=== PATIENT | male | born 1960 | race Caucasian/White ===

== ENCOUNTER 2017-04-23 09:29 | Day surgery (SDC) | payer MEDICARE, BC ==
[~2017-04-23 09:29] MED LIST: Cefuroxime 10 MG/ML SYRINGE EYERT SCH; Lidocaine 1% PF 2 ML SDV INJECT SCH; Ofloxacin 0.3% Ophth Soln 5 ML Bottle EYERT SCH; Pilocarpine 4% Ophth Soln 15 ML Bot EYERT SCH
[2017-04-23] MEDS: Polymyxin B/Trimethoprim 10 ML Bottle EYERT SCH ×2 (10:30→11:10)
[2017-04-23] MEDS: Brimonidine 0.2% Ophth Soln 5 ML Bottle EYERT SCH ×3 (10:36→12:02)
[2017-04-23] MEDS: Phenylephrine 2.5% Ophth Soln 2 ML Bot EYERT SCH ×5 (10:40→11:41)
--- NOTE | 2017-04-23 10:44 | PCM.PREANE ---
Preanesthetic Assessment - Procedure Proposed Procedure: Left eye cataract extraction with IOL - Anesthesia/Transfusion/Family Hx Anesthesia History: Prior Anesthesia Without Reaction Type of Anesthesia Reaction: Excessive Somnolence Family History of Anesthesia Reaction: No Transfusion History: No Prior Transfusion(s) Intubation History: Unknown - Review of Systems General: No Symptoms Pulmonary: Shortness of Breath, Cough, Other (COPD) Cardiovascular: No Symptoms Gastrointestinal: Other (GERD) Neurological: Numbness (to hands occasionally "from chemo") Other: Reports: None, Depression, Anxiety - Physical Assessment NPO Status Date: 04/23/17 NPO Status Time: 06:00 O2 Sat by Pulse Oximetry: 90 Respiratory Rate: 16 Vital Signs: Last Vital Signs Temp 37.0 C 04/23/17 10:19 Pulse 104 H 04/23/17 10:19 Resp 16 04/23/17 10:19 BP 110/64 04/23/17 10:19 Pulse Ox 90 L 04/23/17 10:19 Height: 1.73 m Weight: 97.976 kg ASA Class: 3 Mental Status: Alert & Oriented x3 Dentition: Reports: Missing Tooth/Teeth Thyro-Mental Finger Breadths: 3 Mouth Opening Finger Breadths: 3 ROM/Head Extension: Full Lungs: Clear to auscultation, Normal respiratory effort Cardiovascular: Regular Rate, Regular Rhythm - Allergies Allergies/Adverse Reactions: Allergies Allergy/AdvReac Type Severity Reaction Status Date / Time erythromycin base Allergy Cannot Verified 04/22/17 15:08 [From Erythrocin] Remember hydromorphone [From Dilaudid] Allergy Cannot Verified 04/22/17 15:08 Remember metoclopramide [From Reglan] Allergy Cannot Verified 04/22/17 15:08 Remember Penicillins Allergy Cannot Verified 04/22/17 15:08 Remember Sulfa (Sulfonamide Allergy Cannot Verified 04/22/17 15:08 Antibiotics) Remember metals Allergy Cannot Uncoded 04/22/17 15:08 Remember - Blood Blood Available: No Product(s) Available: None - Anesthesia Plan Pre-Op Medication Ordered: None - Acknowledgements Anesthesia Type Planned: MAC Pt an Appropriate Candidate for the Planned Anesthesia: Yes Alternatives and Risks of Anesthesia Discussed w Pt/Guardian: Yes Pt/Guardian Understands and Agrees with Anesthesia Plan: Yes PreAnesthesia Questionnaire - CURRENT (IN HOUSE) MEDS Current Meds: Current Medications Brimonidine Tartrate (Alphagan 0.2% Ophth Soln) 0 ml EYERT ASDIRECTED REYNA Stop: 04/23/17 18:00 Last Admin: 04/23/17 10:36 Dose: 1 drop Cefuroxime Sodium (Zinacef) 0 mg EYERT ASDIRECTED REYNA Stop: 04/23/17 18:00 Lidocaine HCl (Xylocaine-Mpf 1%) 10 ml INJECT ASDIRECTED REYNA Stop: 04/23/17 18:00 Ofloxacin (Ocuflox 0.3% Ophth Soln) 0 ml EYERT ASDIRECTED REYNA Phenylephrine HCl (Rashad-Synephrine 2.5% Ophth Soln) 0 ml EYERT ASDIRECTED REYNA Stop: 04/23/17 18:00 Pilocarpine HCl (Pilocar 4% Ophth Soln) 0 ml EYERT ASDIRECTED REYNA Stop: 04/23/17 18:00 Tetracaine HCl (Tetracaine 0.5% Steri-Unit Shelley) 0 ml EYERT ASDIRECTED REYNA Stop: 04/23/17 18:00 Tropicamide (Mydriacyl 1% Ophth Soln) 0 ml EYERT ASDIRECTED REYNA Stop: 04/23/17 18:00 Discontinued Medications Polymyxin/Trimethoprim Sulfate (Polytrim Ophth Soln) 0 ml EYERT ASDIRECTED REYNA Stop: 04/23/17 18:00 Last Admin: 04/23/17 10:30 Dose: 1 drop
[2017-04-23] MEDS: Tetracaine HCl/PF 0.5% 4 ML Bottle EYERT SCH ×2 (11:33→11:46)
[2017-04-23 12:17] VITALS: BP 119/71
== END 2017-04-23 12:13 | disposition home or self-care (01) ==
LOC: JD.SDS 09:29
PROVIDERS: ATTEND Ophthalmology
PROC: 08RJ3JZ Replacement of Right Lens with Synthetic Substitute, Percutaneous Approach (ICD-10-PCS; principal; 2017-04-23)
DX: H25.811 Combined forms of age-related cataract, right eye (principal); D31.31 Benign neoplasm of right choroid; H35.373 Puckering of macula, bilateral; H16.223 Keratoconjunctivitis sicca, not specified as Sjogren's, bilateral; H16.103 Unspecified superficial keratitis, bilateral; M19.90 Unspecified osteoarthritis, unspecified site; J44.9 Chronic obstructive pulmonary disease, unspecified; F17.200 Nicotine dependence, unspecified, uncomplicated; Z85.830 Personal history of malignant neoplasm of bone; Z85.118 Personal history of other malignant neoplasm of bronchus and lung; Z85.828 Personal history of other malignant neoplasm of skin; Z85.89 Personal history of malignant neoplasm of other organs and systems; Z98.890 Other specified postprocedural states; Z88.0 Allergy status to penicillin; Z88.1 Allergy status to other antibiotic agents; Z88.2 Allergy status to sulfonamides; Z88.5 Allergy status to narcotic agent; Z91.048 Other nonmedicinal substance allergy status; Z79.899 Other long term (current) drug therapy
CPT/HCPCS: 66982; C1780; J0697; A9270-GY

== ENCOUNTER 2017-06-25 08:14 | Day surgery (SDC) | payer MEDICARE, BC ==
[~2017-06-25 08:14] MED LIST changes: +Brimonidine 0.2% Ophth Soln 5 ML Bottle EYERT SCH; +Phenylephrine 2.5% Ophth Soln 2 ML Bot EYERT SCH; +Polymyxin B/Trimethoprim 10 ML Bottle EYERT SCH; +Tetracaine HCl/PF 0.5% 4 ML Bottle EYERT SCH
[2017-06-25] MEDS: Ofloxacin 0.3% Ophth Soln 5 ML Bottle EYERT SCH ×3 (08:26→10:40)
--- NOTE | 2017-06-25 08:29 | PCM.PREANE ---
Preanesthetic Assessment - Anesthesia/Transfusion/Family Hx Anesthesia History: Prior Anesthesia Without Reaction Family History of Anesthesia Reaction: No Transfusion History: No Prior Transfusion(s) Intubation History: Unknown - Review of Systems General: No Symptoms Pulmonary: Shortness of Breath (pt states comes and goes) Cardiovascular: No Symptoms Gastrointestinal: No Symptoms, Nausea, Vomiting (pt states comes and goes, takes zofran) Neurological: No Symptoms Other: Reports: None - Physical Assessment NPO Status Date: 06/24/17 NPO Status Time: 18:00 Pulse: 99 O2 Sat by Pulse Oximetry: 96 Respiratory Rate: 18 Blood Pressure: 112/71 Temperature: 97.7 C Height: 1.73 m Weight: 97.976 kg ASA Class: 3 Mental Status: Alert & Oriented x3 Airway Class: Mallampati = 1 Dentition: Reports: Normal Dentition, Implants Thyro-Mental Finger Breadths: 3 Mouth Opening Finger Breadths: 3 ROM/Head Extension: Full Lungs: Clear to Auscultation, Decreased Breath Sounds (decreased LLL) Cardiovascular: Regular Rate, Regular Rhythm - Allergies Allergies/Adverse Reactions: Allergies Allergy/AdvReac Type Severity Reaction Status Date / Time erythromycin base Allergy Cannot Verified 04/22/17 15:08 [From Erythrocin] Remember hydromorphone [From Dilaudid] Allergy Cannot Verified 04/22/17 15:08 Remember metoclopramide [From Reglan] Allergy Cannot Verified 04/22/17 15:08 Remember Penicillins Allergy Cannot Verified 04/22/17 15:08 Remember Sulfa (Sulfonamide Allergy Cannot Verified 04/22/17 15:08 Antibiotics) Remember metals Allergy Cannot Uncoded 04/22/17 15:08 Remember - Acknowledgements Anesthesia Type Planned: MAC Pt an Appropriate Candidate for the Planned Anesthesia: Yes Alternatives and Risks of Anesthesia Discussed w Pt/Guardian: Yes Pt/Guardian Understands and Agrees with Anesthesia Plan: Yes PreAnesthesia Questionnaire HEENT History: Reports: Cataract Cardiovascular History: Reports: None Respiratory History: Reports: COPD, SOB (stage 4 lung CA, states SOB comes and goes) Gastrointestinal History: Reports: GERD Genitourinary History: Reports: None, Other (See Below) (hx transeurtheal resection) Musculoskeletal History: Reports: Arthritis Neurological History: Reports: None Psychiatric History: Reports: None Endocrine/Metabolic History: Reports: Other (See Below) (adrenal CA) Hematologic History: Reports: None Immunologic History: Reports: None Oncologic (Cancer) History: Reports: Bone, Lung Dermatologic History: Reports: None - Infectious Disease History Infectious Disease History: Reports: None - Past Surgical History Head Surgeries/Procedures: Reports: None HEENT Surgical History: Reports: Cataract Surgery Cardiovascular Surgical History: Reports: None Respiratory Surgical History: Reports: None GI Surgical History: Reports: Cholecystectomy, Colonoscopy, Hernia, Inguinal Female Surgical History: Reports: None Male Surgical History: Reports: TURBT-Transurethral Resection of Bladder Tumor Endocrine Surgical History: Reports: None Neurological Surgical History: Reports: None Musculoskeletal Surgical History: Reports: None Oncologic Surgical History: Reports: None Dermatological Surgical History: Reports: None - SUBSTANCE USE Smoking Status *Q: Former Smoker - HOME MEDS Home Medications: Home Meds Acetaminophen/HYDROcodone [[place] 325-5 MG] 1 tab PO Q4H PRN 06/24/17 [History] Amylase/Lipase/Protease [Creon DR 24,000 Units] 1 cap PO TIDMEALS 06/24/17 [ History] Budesonide/Formoterol [Symbicort 160-4.5 MCG] 2 puff INH BID 06/24/17 [History] Ciclopirox/Ure/Camph/Menth/Euc [Ciclopirox 8% Treatment Kit] 1 applic TP ASDIRECTED PRN 06/24/17 [History] Diphenoxylate HCl/Atropine [Diphenoxylate-Atrop 2.5-0.025] 1 tab PO ASDIRECTED PRN 06/24/17 [History] Gabapentin [Neurontin] 300 mg PO ASDIRECTED 06/24/17 [History] Gabapentin [Neurontin] 900 mg PO ASDIRECTED 06/24/17 [History] Methylphenidate HCl [Methylphenidate ER] 10 mg PO BID 06/24/17 [History] Nitroglycerin 0.4 mg SL ASDIRECTED PRN 06/24/17 [History] Ondansetron HCl [Zofran] 8 mg PO Q6H PRN 06/24/17 [History] Ondansetron [Zofran Odt] 8 mg PO Q6H PRN 06/24/17 [History] Pantoprazole Sodium [Protonix] 40 mg PO DAILY 06/24/17 [History] Promethazine HCl/Codeine [Prometh-Codein 6.25-10 mg/5 ml] 5 ml PO Q6H PRN [History] Promethazine [Phenergan] 12.5 mg PO Q6H PRN 06/24/17 [History] Sertraline HCl [Zoloft] 100 mg PO DAILY 06/24/17 [History] Thiamine [Vitamin B-1] 100 mg PO DAILY 06/24/17 [History] Tiotropium [place] [Spiriva Respimat] 2 puff IH DAILY 06/24/17 [History] Vitamin B Complex [B Complex] 1 tab PO DAILY 06/24/17 [History] atorvaSTATin [Lipitor] 20 mg PO BEDTIME 06/24/17 [History] - CURRENT (IN HOUSE) MEDS Current Meds: Current Medications Brimonidine Tartrate (Alphagan 0.2% Ophth Soln) 0 ml EYERT ASDIRECTED REYNA Stop: 06/25/17 18:00 Cefuroxime Sodium (Zinacef) 0 mg EYERT ASDIRECTED REYNA Stop: 06/25/17 18:00 Lidocaine HCl (Xylocaine-Mpf 1%) 10 ml INJECT ASDIRECTED REYNA Stop: 06/25/17 18:00 Ofloxacin (Ocuflox 0.3% Ophth Soln) 0 ml EYERT ASDIRECTED REYNA Stop: 06/25/17 18:00 Phenylephrine HCl (Rashad-Synephrine 2.5% Ophth Soln) 0 ml EYERT ASDIRECTED REYNA Stop: 06/25/17 18:00 Pilocarpine HCl (Pilocar 4% Ophth Soln) 0 ml EYERT ASDIRECTED REYNA Stop: 06/25/17 18:00 Tetracaine HCl (Tetracaine 0.5% Steri-Unit Shelley) 0 ml EYERT ASDIRECTED REYNA Stop: 06/25/17 18:00 Tropicamide (Mydriacyl 1% Ophth Soln) 0 ml EYERT ASDIRECTED REYNA Stop: 06/25/17 18:00 Discontinued Medications Brimonidine Tartrate (Alphagan 0.2% Ophth Soln) 0 ml EYERT ASDIRECTED REYNA Stop: 05/19/17 16:00 Brimonidine Tartrate (Alphagan 0.2% Ophth Soln) 0 ml EYERT ASDIRECTED REYNA Stop: 06/23/17 18:00 Cefuroxime Sodium (Zinacef) 0 mg EYERT ASDIRECTED REYNA Stop: 05/19/17 18:00 Cefuroxime Sodium (Zinacef) 0 mg EYERT ASDIRECTED REYNA Stop: 06/23/17 16:00 Lidocaine HCl (Xylocaine-Mpf 1%) 10 ml INJECT ASDIRECTED REYNA Stop: 05/19/17 18:00 Lidocaine HCl (Xylocaine-Mpf 1%) 10 ml INJECT ASDIRECTED REYNA Stop: 06/23/17 16:00 Ofloxacin (Ocuflox 0.3% Ophth Soln) 0 ml EYERT ASDIRECTED REYNA Stop: 05/19/17 16:00 Ofloxacin (Ocuflox 0.3% Ophth Soln) 0 ml EYERT ASDIRECTED REYNA Stop: 06/23/17 16:00 Phenylephrine HCl (Rashad-Synephrine 2.5% Ophth Soln) 0 ml EYERT ASDIRECTED REYNA Stop: 05/19/17 16:00 Phenylephrine HCl (Rashad-Synephrine 2.5% Ophth Soln) 0 ml EYERT ASDIRECTED REYNA Stop: 06/23/17 16:00 Pilocarpine HCl (Pilocar 4% Ophth Soln) 0 ml EYERT ASDIRECTED REYNA Stop: 05/19/17 16:00 Piloc[place] HCl (Pilocar 4% Ophth Soln) 0 ml EYERT ASDIRECTED REYNA Stop: 06/23/17 16:00 Tetracaine HCl (Tetracaine 0.5% Steri-Unit Shelley) 0 ml EYERT ASDIRECTED REYNA Stop: 05/19/17 16:00 Tetracaine HCl (Tetracaine 0.5% Steri-Unit [place]) 0 ml EYERT ASDIRECTED REYNA Stop: 06/23/17 16:00 Tropicamide (Mydriacyl 1% Ophth Soln) 0 ml EYERT ASDIRECTED REYNA Stop: 05/19/17 16:00 Tropicamide (Mydriacyl 1% Ophth Soln) 0 ml EYERT ASDIRECTED REYNA Stop: 06/23/17 16:00
[2017-06-25] MEDS: Brimonidine 0.2% Ophth Soln 5 ML Bottle EYERT SCH ×3 (08:32→10:40)
[2017-06-25] MEDS: Phenylephrine 2.5% Ophth Soln 2 ML Bot EYERT SCH ×5 (08:41→10:17)
[2017-06-25] MEDS: Tetracaine HCl/PF 0.5% 4 ML Bottle EYERT SCH ×2 (10:01→10:26)
--- NOTE | 2017-06-25 10:42 | PCM48HPAN ---
Post Anesthesia Note - EVALUATION WITHIN 48HRS OF ANESTHETIC Vital Signs in Normal Range: Yes Patient Participated in Evaluation: Yes Respiratory Function Stable: Yes Airway Patent: Yes Cardiovascular Function Stable: Yes Hydration Status Stable: Yes Pain Control Satisfactory: Yes Nausea and Vomiting Control Satisfactory: Yes Mental Status Recovered: Yes
[2017-06-25 11:00] VITALS: BP 114/69
== END 2017-06-25 10:53 | disposition home or self-care (01) ==
LOC: JD.SDS 08:14
PROVIDERS: ATTEND Ophthalmology
DX: H25.11 Age-related nuclear cataract, right eye (principal); D31.31 Benign neoplasm of right choroid; H35.373 Puckering of macula, bilateral; H02.831 Dermatochalasis of right upper eyelid; H02.834 Dermatochalasis of left upper eyelid; M19.90 Unspecified osteoarthritis, unspecified site; J44.9 Chronic obstructive pulmonary disease, unspecified; K21.9 Gastro-esophageal reflux disease without esophagitis; Z85.830 Personal history of malignant neoplasm of bone; Z85.89 Personal history of malignant neoplasm of other organs and systems; Z85.118 Personal history of other malignant neoplasm of bronchus and lung; Z85.828 Personal history of other malignant neoplasm of skin; Z87.891 Personal history of nicotine dependence; Z98.42 Cataract extraction status, left eye; Z96.1 Presence of intraocular lens; Z90.49 Acquired absence of other specified parts of digestive tract; Z98.890 Other specified postprocedural states; Z88.0 Allergy status to penicillin; Z88.1 Allergy status to other antibiotic agents; Z88.2 Allergy status to sulfonamides; Z88.5 Allergy status to narcotic agent; Z88.8 Allergy status to other drugs, medicaments and biological substances; Z91.048 Other nonmedicinal substance allergy status; Z79.899 Other long term (current) drug therapy; Z79.52 Long term (current) use of systemic steroids
CPT/HCPCS: 66982; A9270; C1780; J0697